=== PATIENT | male | born 1950 | race Caucasian/White ===

== ENCOUNTER 2020-12-01 09:14 | Day surgery (SDC) | payer MEDICARE ==
[2020-11-30 09:28] VITALS: BMI 28.1
[~2020-12-01 09:14] MED LIST: ALPRAZolam 0.25 MG TAB PO PRN; ALPRAZolam 0.5 MG TAB PO PRN; ASPIRIN 325 MG TAB PO ONE; ATORVASTATIN 80 MG TAB PO ONE; NITROGLYCERIN SL TABS 0.4 MG TAB SUBLINGUAL PRN
[2020-12-01] MEDS ORDERED: SODIUM CHLORIDE 0.9% 1,000 ML IV ONE (09:52)
[2020-12-01] MEDS ORDERED: amLODIPine 5 MG TAB PO ONE ×2 (10:00→11:45)
[2020-12-01] MEDS ORDERED: METOPROLOL TARTRATE 50 MG TAB PO ONE (10:00)
[2020-12-01] MEDS ORDERED: lisinopriL 20 MG TAB PO ONE (10:00)
[2020-12-01] MEDS ORDERED: LIDOCAINE 1% INJ 10MG/ML (20 ML MDV) ONE (10:38)
[2020-12-01] MEDS ORDERED: VERAPAMIL 2.5 MG/ML 2 ML AMP ONE (10:39)
[2020-12-01] MEDS ORDERED: HEPARIN SODIUM 1,000 UN/ML (10ML VL) ONE (10:55)
[2020-12-01] MEDS ORDERED: MIDAZOLAM 2 MG/2 ML VIAL IV ONE (11:08)
[2020-12-01] MEDS ORDERED: VERAPAMIL SYRINGE (5 MG/10 ML) INTRAARTER ONE ×2 (11:10→11:12)
[2020-12-01] MEDS ORDERED: LIDOCAINE 1% INJ 10MG/ML (20 ML MDV) SQ ONE (11:10)
[2020-12-01] MEDS ORDERED: NITROGLYCERIN SL TABS 0.4 MG TAB SUBLINGUAL ONE ×2 (11:16→11:17)
[2020-12-01] MEDS ORDERED: HEPARIN SODIUM 1,000 UN/ML (10ML VL) IV ONE (11:20)
[2020-12-01] MEDS ORDERED: NITROGLYCERIN 1000MCG/10ML SYRINGE INTRACORON ONE ×2 (11:32)
[2020-12-01] MEDS ORDERED: CLOPIDOGREL 75 MG TAB ONE (11:36)
[2020-12-01] MEDS ORDERED: amLODIPine 5 MG TAB ONE (11:40)
[2020-12-01] MEDS ORDERED: CLOPIDOGREL 75 MG TAB PO ONE (11:42)
[2020-12-01] MEDS ORDERED: IOPAMIDOL-370 100ML BTL INJ ONE (11:48)
--- NOTE | 2020-12-01 12:18 | PTCA ---
PERCUTANEOUSTRANS CORORONARY ANGIOGRAPHY DATE OF SERVICE: 12/01/2020 PROCEDURE: PTCA and stenting of mid LAD in a patient with a left main attached to the distal LAD. A drug-eluting stent was used. PERFORMED BY: Dr. Enedelia Simmons. ANESTHESIA: Moderate conscious sedation time was 33 minutes. Patient was administered Versed. Oxygen saturation, hemodynamics and EKG were monitored closely. CLINICAL INFORMATION: Mr. Sunil Mireles is a 70-year-old gentleman with a known history of CAD and prior aortocoronary bypass surgery that was performed in 2006 with a MAYORGA to LAD that was attached distally, right internal mammary artery graft to the RCA and a free radial artery graft to the obtuse marginal. He had a cardiac cath because of a significantly abnormal stress test in the LAD diagonal distribution. Cardiac cath revealed that the grafts were patent but there was a long segment of mid LAD that was diseased and there were diagonal and small septal branches coming from the from this area. He was advised intervention after due discussion. Area of ischemia was significant. Risks, benefits, options and rationale were explained. He was brought in for the procedure electively. PROCEDURE NOTE: Under local anesthesia and strict aseptic precautions, a 6-[place] introducer was placed in the right radial artery. A JL3.5 guide catheter of 6-[place] caliber was used to cannulate the left coronary artery and a run-through wire was used to cross the lesion. The patient received 6000 units of heparin which is above 70 units/kg. ACT on multiple checks was out of range on the first one, 386 on the second one, third one was 241. The ACT numbers are not reliable. The patient received 600 mg of Plavix. PCI PROCEDURE DETAILS: A JL3.5 guide catheter was used to cannulate the left coronary artery and a run-through wire was used to cross the lesion. A 2.5 caliber 15 mm NC Trek balloon was used to pre- dilate the lesion at 12 atmospheres. I then used a 2.75 caliber 18 mm long Xience stent and deployed this across the diagonal branch which already had a tight lesion. Excellent angiographic result was achieved. The flow in the diagonal was very well preserved. There was excellent flow seen both in the distal LAD and also retrogradely into the left internal mammary artery graft. Excellent angiographic result without complication was achieved. The sheath was taken out and a TR band applied as per protocol. Saturation of the fingers of the right hand was 96%. Excellent angiographic result without complication was achieved, but there was no family to talk to. Patient will be discharged tomorrow if he remains stable. [place] / MIKN: [id number] /
[2020-12-01] MEDS: SODIUM CHLORIDE 0.9% 1,000 ML in EMPTY BAG 1 BAG IV SCH ×3 (13:24→20:21)
[2020-12-01] MEDS: SODIUM CHLORIDE 0.9% 1,000 ML IV SCH (15:42)
[2020-12-02 00:02] VITALS: RESP 16
[2020-12-02] MEDS: SODIUM CHLORIDE 0.9% 1,000 ML IV SCH (01:27)
[2020-12-02] MEDS ORDERED: LEVOTHYROXINE 100 MCG TAB PO SCH (06:30)
[2020-12-02] MEDS ORDERED: PANTOPRAZOLE 40 MG TABLET PO SCH (07:30)
[2020-12-02] MEDS ORDERED: ATORVASTATIN 80 MG TAB PO SCH (09:00)
[2020-12-02] MEDS ORDERED: lisinopriL 20 MG TAB PO SCH (09:00)
[2020-12-02] MEDS ORDERED: METOPROLOL TARTRATE 50 MG TAB PO SCH (09:00)
[2020-12-02] MEDS ORDERED: PYRIDOXINE 50 MG TAB PO SCH (09:00)
[2020-12-02] MEDS ORDERED: ASPIRIN 81 MG PO SCH (09:00)
[2020-12-02] MEDS ORDERED: CLOPIDOGREL 75 MG TAB PO SCH (09:00)
[2020-12-02] MEDS ORDERED: amLODIPine 5 MG TAB PO SCH (09:00)
[2020-12-02 10:21] VITALS: BP 135/71; PULSE 62; TEMP 98
--- NOTE | 2020-12-03 18:40 | DS ---
DISCHARGE SUMMARY DATE OF ADMISSION: 12/01/2020 DATE OF DISCHARGE: 12/02/2020. DIAGNOSIS: Unstable angina with a history of prior bypass surgery, hypertension and hypercholesterolemia. This gentleman was brought in for elective PCI of a mid LAD long calcified lesion. He also had a MAYORGA that was patent but was supplying the distal LAD. He also has a free radial artery graft that was patent. PCI was of the LAD was performed from right radial approach with an excellent angiographic result. Postprocedure course was uneventful. On the day of discharge, he was asymptomatic. Vitals were stable. EKG revealed nonspecific precordial ST-T changes, which was his baseline. His labs were good. He was ambulating without symptoms. Right radial cath site was clean and dry with a good pulse. He was advised that he can be discharged today after he is up and about. Discharge instructions regarding activity, diet and medications were given. His blood pressure was excellent. Physical exam revealed no JVD. S1-S2 were heard normally. Short systolic murmur was noted. Lungs were clear. Abdomen was soft, nontender. Lower extremities revealed palpable pulses. No edema. Central nervous system is normal. Right radial site is clean and dry with a good pulse. Patient will be discharged today and I will see him in the office later this week. Discharge instructions regarding activity, diet and medications were given and all questions answered. MMODL / IJN: [id number] /
== END 2020-12-02 09:07 | disposition home or self-care (01) ==
LOC: CATHCVL 09:14 → 3SCARD 13:39 → CATHCVL 12-02 09:07
PROVIDERS: ATTEND Internal Medicine Interventional Cardiology
DX: I25.10 Atherosclerotic heart disease of native coronary artery without angina pectoris (principal); Z95.1 Presence of aortocoronary bypass graft; I10 Essential (primary) hypertension; E78.5 Hyperlipidemia, unspecified; E78.00 Pure hypercholesterolemia, unspecified; Z82.49 Family history of ischemic heart disease and other diseases of the circulatory system; Z72.0 Tobacco use; Z79.82 Long term (current) use of aspirin; Z79.890 Hormone replacement therapy; Z79.899 Other long term (current) drug therapy; Z91.013 Allergy to seafood
CPT/HCPCS: 87635; C9600; C1887; C1894; C1725; C1769; C1874; J2250; J2001; J1644; Q9967

== ENCOUNTER → 2021-05-11 | Outpatient (CLI) | payer MEDICARE ==
[2021-05-11 11:05] LABS: African American GFR (CKD) >90 (>60 ml/min/1.73 sqM); Blood Urea Nitrogen 19 mg/dL (9-20); Non-African American GFR(CKD) 83 (>60 ml/min/1.73 sqM)
--- NOTE | 2021-05-11 13:38 | CT ---
EXAMINATION TYPE: CT urogram wo/w con DATE OF EXAM: 05/11/2021 INDICATION: Gross hematuria CT DLP: 1988 mGy.cm Automated Exposure Control for Dose Reduction was Utilized. TECHNIQUE AND CONTRAST: CT scan of the abdomen and pelvis is performed without and with IV Contrast as per CT urogram protoco l, the patient was injected with 100 mL of Isovue 370. 3-D reconstruction urogram images were perform ed on an independent workstation and reviewed. COMPARISON: None available FINDINGS: A few nonobstructing calculi are seen at the upper and lower poles of the left kidney measuring up to 2 mm. No other definite radiodense urinary calculi. Scattered bilateral renal cysts without suspicio us feature. Otherwise unremarkable kidneys. No definite filling defect is seen within the renal colle cting system or the opacified ureters. No gross urinary bladder abnormality. Markedly enlarged prosta te, please correlate with PSA level. Unremarkable seminal vesicles. Scattered millimetric hepatic cysts measuring up to 3 mm, otherwise unremarkable liver. The gallbladd er is not distended. Unremarkable spleen, pancreas and adrenals. Arterial atherosclerotic calcificati on with infrarenal abdominal aortic aneurysm measuring up to 3.3 cm. Unremarkable nondistended stomac h, duodenum and small bowel. Fatty infiltration of the terminal ileum as well as the right hemicolon. Scattered uncomplicated colonic diverticulosis. Normal appendix. Bilateral fat-containing inguinal he rnias. No suspicious lymphadenopathy or sizable ascites. Unremarkable lung bases. Severe degenerative changes at L4-5 and L5-S1 levels with milder degenerative changes of the lower thoracic and remainde r of the lumbar spine. IMPRESSION: Few millimetric nonobstructing calculi in the left kidney as described above. No gross suspicious les al or ureteric lesion identified. Markedly enlarged prostate, please correlate with PSA level. Other incidental findings as described above.
== END | disposition home or self-care (01) ==
LOC: RADCTMAIN 10:09
PROVIDERS: ATTEND Urology
DX: N20.0 Calculus of kidney (principal); R31.0 Gross hematuria
CPT/HCPCS: 82565; 84520; 74178; 36415; 74400; Q9967

== ENCOUNTER → 2022-03-22 | Outpatient (CLI) | payer MEDICARE ==
--- NOTE | 2022-03-24 10:16 | MR ---
EXAMINATION TYPE: MR Prostate wo/w con DATE OF EXAM: 03/22/2022 9:45 AM COMPARISON: 05/09/2021. CLINICAL INDICATION:Male, 71 years old with history of R97.20 ELEVATED PROSTATE SPECIFIC ANTIGEN; TECHNIQUE: Multi-planar, multi-sequence imaging of the pelvis is performed prior to and following the uncomplicated administration of bolus intravenous gadolinium. CONTRAST: 9 Gadavist Interpretive Criteria: PI-RADS v2.1 SERUM PSA: 12.1 on 03/02/2022. 10.1 12/03/2021. SURGICAL PATHOLOGY: Negative biopsy on 07/17/2014 FINDINGS: Prostatic dimensions: 6.1 x 5.2 x 4.5 cm. Ellipsoid Volume:74.74 (PSA density=0.16 ng/mL/mL) CENTRAL GLAND (Central and Transition Zones/CZ+TZ): Multiple bilateral, heterogenous appearing hypertrophic stromal nodules, without suspicious lesion. M edian lobe hypertrophy with protrusion into the base of the bladder. (PI-RADS 2) PERIPHERAL ZONE (PZ): No evidence of masslike abnormality, or localized perfusional hypervascularity, to further suggest a focus of clinically significant prostate cancer. (PI-RADS 2) SEMINAL VESICLES (SV): Diffusely collapse or atrophic, bilaterally. PERIPROSTATIC TISSUES: Unremarkable. LYMPH NODES: No enlarged pelvic lymph node. REMAINING PELVIS: Bladder wall is within normal limits given distention. No abnormal free or organized intrapelvic fluid collection. No pathologic bowel dilation or mural thickening. Fat-containing bilateral inguinal hernias. OSSEOUS STRUCTURES: No suspicious osseous abnormality. IMPRESSION: 1. No specific features for high-risk prostate cancer. Maximum PI-RADS score: 2. 2. Moderate BPH, estimated gland volume 74.7 mL.
== END | disposition home or self-care (01) ==
LOC: RADMRIMAIN 08:04
PROVIDERS: ATTEND Urology
DX: N40.0 Benign prostatic hyperplasia without lower urinary tract symptoms (principal); R97.20 Elevated prostate specific antigen [PSA]
CPT/HCPCS: 72197; A9585

== ENCOUNTER → 2023-09-20 | Outpatient (CLI) | payer MEDICARE ==
--- NOTE | 2023-09-20 09:19 | CT ---
EXAMINATION TYPE: CT iac wo con CT DLP: 142.70 mGycm, Automated exposure control for dose reduction was used. DATE OF EXAM: 09/20/2023 8:49 AM INDICATION: Patient age:Male; 72 years old; Reason for study: H93.19 TINNITUS, UNSPECIFIED EAR; PHH. COMPARISON: None. TECHNIQUE: Multiple thin axial images were obtained through the temporal bones and internal auditory canals. Additional coronal reformatted images were obtained. No IV contrast was utilized. CT Contrast: mL of , none. FINDINGS: Right Temporal Bone: External Ear: The external auditory canal is unremarkable, The tympanic membrane is present and unrem arkable. Middle Ear: The ossicles demonstrate a normal appearance. Prussak's space is clear and the scutum i s intact. There is no evidence of osseous erosion and the tegmen tympani is intact. Inner Ear: Cochlea, vestibule and semi circular canals are unremarkable. No evidence of carotid gail l dehiscence. Two and a half turns of the cochlea are identified. The vestibular aqueduct is not enl arged. Mastoid Air Cells: The mastoid air cells are clear. The tegmen mastoideum is intact. The aditus ad an trum is clear. Internal Auditory Canal: The internal auditory canal is unremarkable. Left Temporal Bone: External Ear: The external auditory canal is unremarkable, The tympanic membrane is present and unrem arkable. Middle Ear: The ossicles demonstrate a normal appearance. Prussak's space is clear and the scutum i s intact. There is no evidence of osseous erosion and the tegmen tympani is intact. Inner Ear: Cochlea, vestibule and semi circular canals are unremarkable. No evidence of carotid gail l dehiscence. Two and a half turns of the cochlea are identified. The vestibular aqueduct is not enl arged. Mastoid Air Cells: The mastoid air cells are clear. The tegmen mastoideum is intact. The aditus ad an trum is clear. Internal Auditory Canal: The internal auditory canal is unremarkable. Other: Mild paranasal sinus mucosal thickening. Atherosclerosis of the intracranial arterial vasculat ure. IMPRESSION: Normal internal auditory canal study.
== END | disposition home or self-care (01) ==
LOC: RADCTMAIN 08:31
PROVIDERS: ATTEND Otolaryngology
DX: H91.90 Unspecified hearing loss, unspecified ear (principal); H93.19 Tinnitus, unspecified ear
CPT/HCPCS: 70480

== ENCOUNTER 2024-03-13 09:21 | Day surgery (SDC) | payer MEDICARE ==
[2024-03-11 11:06] VITALS: BMI 27.8
[~2024-03-13 09:21] MED LIST changes: -ALPRAZolam 0.25 MG TAB PO PRN; -ALPRAZolam 0.5 MG TAB PO PRN; -ASPIRIN 325 MG TAB PO ONE; -ATORVASTATIN 80 MG TAB PO ONE; +LIDOCAINE 1% (10MG/ML) FOR IV START INTRADERMA PRN; -NITROGLYCERIN SL TABS 0.4 MG TAB SUBLINGUAL PRN
[2024-03-13 10:06] VITALS: TEMP 97.6
[2024-03-13] MEDS: LACTATED RINGERS 1,000 ML IV SCH (10:12)
[2024-03-13] MEDS: IV FLUID CONTINUATION 1,000 ML IV ONE (10:13)
[2024-03-13] MEDS ORDERED: PROPOFOL 10 MG/ML 20 ML VIAL IV ONE (10:41)
[2024-03-13] MEDS ORDERED: LIDOCAINE 1% INJ 10MG/ML (20 ML MDV) ONE (10:41)
--- NOTE | 2024-03-13 11:01 | P.PCN ---
Date of Procedure: 03/13/24 Procedure(s) Performed: BRIEF HISTORY: Patient is a 73-year-old pleasant white male scheduled for an elective colonoscopy as a part of screening for history of colon polyps. Last colonoscopy was 5 years ago and was noted to have tubular adenoma. PROCEDURE PERFORMED: Colonoscopy with snare polypectomy. PREOPERATIVE DIAGNOSIS: Screening for history of colon polyps/tubular adenoma. IV sedation per Anesthesia. PROCEDURE: After informed consent was obtained, the patient, was brought into the endoscopy unit. IV sedation was administered by Anesthesia under continuous monitoring. Digital rectal examination was normal. Initially the Olympus CF-160 flexible video colonoscope was then inserted in the rectum, gradually advanced into the cecum without any difficulty. Careful examination was performed as the scope was gradually being withdrawn. Ileocecal valve and the appendiceal orifice were visualized and appeared normal. Prep was excellent. Mucosa of the cecum, ascending colon, normal. The transverse colon there was a 5 mm polyp that was removed by cold snare polypectomy. Rest of the transverse colon, descending colon, normal. In the sigmoid colon there was a 4 mm and 5 mm polyp removed by cold snare polypectomy. Scattered left-sided diverticulosis seen. Rest of the sigmoid colon, and rectum appeared normal. Retroflexion was performed in the rectum and no lesions were seen. The patient tolerated the procedure well. IMPRESSION: 5 mm transverse colon polyp status post cold snare polypectomy 3 mm and 4 mm sigmoid colon polyp status post cold snare polypectomy Sigmoid diverticulosis RECOMMENDATIONS: Findings of this examination were discussed with the patient as well as his family. He was advised to follow with the biopsy results. If the biopsy reveals adenoma he can have repeat colonoscopy in 5 years..
[2024-03-13 11:05] VITALS: RESP 16
[2024-03-13 11:35] VITALS: BP 144/64; PULSE 60
== END 2024-03-13 11:39 ==
LOC: ORWHC2ENDO 09:21
PROVIDERS: ATTEND Internal Medicine Gastroenterology
DX: Z12.11 Encounter for screening for malignant neoplasm of colon (principal); D12.3 Benign neoplasm of transverse colon; D12.5 Benign neoplasm of sigmoid colon; K63.5 Polyp of colon; K57.30 Diverticulosis of large intestine without perforation or abscess without bleeding; Z86.0101 Personal history of adenomatous and serrated colon polyps; I10 Essential (primary) hypertension; I25.10 Atherosclerotic heart disease of native coronary artery without angina pectoris; E78.5 Hyperlipidemia, unspecified; M19.90 Unspecified osteoarthritis, unspecified site; K21.9 Gastro-esophageal reflux disease without esophagitis; E07.9 Disorder of thyroid, unspecified; I83.90 Asymptomatic varicose veins of unspecified lower extremity; F17.210 Nicotine dependence, cigarettes, uncomplicated; Z79.899 Other long term (current) drug therapy; Z91.013 Allergy to seafood; Z95.1 Presence of aortocoronary bypass graft; Z79.82 Long term (current) use of aspirin; Z79.02 Long term (current) use of antithrombotics/antiplatelets
CPT/HCPCS: 88305; 45385; J2003; J2704